=== PATIENT | female | born 1975 | race Two or more races ===

== ENCOUNTER 2021-05-29 00:16 | Emergency (ER) | payer SELFPAY ==
[~2021-05-29] VITALS: Ht 172.7 cm; Wt 86.0 kg
[2021-05-29] MEDS ORDERED: ORALONE0.1 % MT (00:44)
[2021-05-29] MEDS ORDERED: LISINOP/HCTZ1 TA1 PO (00:44)
[2021-05-29 00:55] VITALS: BP 177/92
== END 2021-05-29 00:57 | disposition home or self-care (01) | DRG 159 ==
LOC: ED 00:16
DX: K12.0 Recurrent oral aphthae (principal); I10 Essential (primary) hypertension